=== PATIENT | female | born 1985 | race Caucasian/White ===

== ENCOUNTER → 2016-06-28 | Outpatient (CLI) | payer BC ==
[~2016-06-28] MED LIST: CETI10TA84 PO; MULT-506 PO; SYN50 PO; ZNTT/150 PO
--- NOTE | 2016-06-28 14:51 | DIAGNOSTIC IMAGING REPORT ---
THYROID ULTRASONOGRAPHY CLINICAL HISTORY: THYROIDITIS COMPARISON STUDY: No previous studies for comparison. FINDINGS: The right of the thyroid measures 5.5 x 1.7 x 1.7 cm. The left lobe measures 4.6 x 1.5 x 1.8 cm. Both lobes are heterogeneous in echotexture. No suspicious thyroid nodules are visualized. There is a 15 x 7 x 7 mm hypoechoic structure located inferior to the left lobe, possibly representing a lymph node. IMPRESSION: 1. Heterogeneous thyroid echotexture consistent with history of thyroiditis. No suspicious thyroid masses 2. 15 x 7 x 7 mm hypoechoic structure located inferior to the left lobe of the thyroid, possibly representing a lymph node Electronically signed by: Dayo Dave M.D. 06/28/2016 2:50 PM Dictated Date/Time: 06/28/2016 2:48 PM
[2016-06-28 18:07] LABS: THYROID STIMULATING HORMONE 3.63 uIu/ml (0.300-4.500)
== END | disposition home or self-care (01) ==
LOC: MERGE 14:08 → C.ULTRBC 14:08
PROVIDERS: ATTEND Otolaryngology
DX: E04.2 Nontoxic multinodular goiter (principal)

== ENCOUNTER → 2016-07-23 | Outpatient (CLI) | payer BC ==
--- NOTE | 2016-07-23 13:40 | DIAGNOSTIC IMAGING REPORT ---
ULTRASOUND-GUIDED LEFT NECK LYMPH NODE FINE-NEEDLE ASPIRATION BIOPSY CLINICAL HISTORY: SOFT TISSUE NODULE INFERIOR TO THE LEVEL OF THE THYROID COMPARISON STUDY: 06/28/2016 FINDINGS: A timeout was performed. The risks the procedure were explained the patient informed consent was obtained. The patient was prepped in sterile fashion. The skin was anesthetized with 1% lidocaine. 2 initial passes with a 25-gauge needle under ultrasound guidance were performed into the soft tissue nodule in question which is located inferior to the left lobe of thyroid. Initial pathologic review indicated lymphocytes, consistent with the diagnosis of a suspected lymph node. A third pass was performed and sent for flow cytometry. IMPRESSION: Successful ultrasound-guided fine-needle aspiration biopsy of a soft tissue nodule located inferior to the left lobe of the thyroid. This appears to represent a lymph node. Final pathology is pending at this time. Electronically signed by: Dayo Dave M.D. 07/23/2016 1:38 PM Dictated Date/Time: 07/23/2016 1:36 PM
[2016-07-25 08:41] LABS: NEO FLOW LYMPH/LEUK STND SEE NEO MISC
== END | disposition home or self-care (01) ==
LOC: C.ULTR 12:23
PROVIDERS: ATTEND Otolaryngology
DX: E04.1 Nontoxic single thyroid nodule (principal)

== ENCOUNTER → 2016-11-01 | Outpatient (CLI) | payer BC | END | disposition home or self-care (01) | LOC: C.PAPS 08:57 | PROVIDERS: ATTEND Physician Assistant | DX: Z01.419 Encounter for gynecological examination (general) (routine) without abnormal findings (principal) ==

== ENCOUNTER → 2017-01-02 | Outpatient (CLI) | payer BC | END | disposition home or self-care (01) | LOC: C.LABBC 12:27 | PROVIDERS: ATTEND Family Medicine | DX: E06.3 Autoimmune thyroiditis (principal) ==

== ENCOUNTER → 2017-10-01 | Outpatient (CLI) | payer OTHER ==
[~2017-10-01] MED LIST changes: +RANI150T85 PO; -ZNTT/150 PO
[2017-10-01 14:31] LABS: BLOOD UREA NITROGEN 8 mg/dl (7-18); CALCIUM 9.4 mg/dl (8.5-10.1); CARBON DIOXIDE 28 mmol/L (21-32); CREATININE 0.68 mg/dl (0.60-1.20); GLUCOSE 84 mg/dl (70-99); POTASSIUM 3.7 mmol/L (3.5-5.1); SODIUM 136 mmol/L (136-145)
== END | disposition home or self-care (01) ==
LOC: C.LABBC 10:21
PROVIDERS: ATTEND Family Medicine
DX: E06.3 Autoimmune thyroiditis (principal); Z79.899 Other long term (current) drug therapy